=== PATIENT | male | born 1985 | race Two or more races ===

== ENCOUNTER 2019-04-07 12:50 | Emergency (ER) | payer SELFPAY ==
[~2019-04-07] VITALS: Ht 165.1 cm; Wt 97.0 kg
--- NOTE | 2019-04-07 13:48 | NUR ---
Went to room to see pt. Pt not in room at this time. Pt's friend/family member at bedside states, "he went to the bathroom."
[2019-04-07 14:06] VITALS: BP 133/85
--- NOTE | 2019-04-07 14:10 | NUR ---
Pt resting on gurney connected to NIBP, continous pulse ox, and child monitor. NADN. No needs expressed at this time. Pt states, "I went to work today and started having numbness, tingling, and cramping in my fingers and toes (bilaterally) and I started to feel paniced." Call light within reach. Pt denies cp, sob, n/v/d, trauma.
[2019-04-07 14:30] LABS: ANION GAP 13 mmol/L (5-15); CALCIUM 9.4 mg/dL (8.5-10.1); CHLORIDE 106 mmol/L (98-107); CREATININE 1.01 mg/dL (0.7-1.3)
--- NOTE | 2019-04-07 14:47 | NUR ---
Patient given discharge instructions and they have confirmed that they understand the instructions. Patient ambulatory with steady gait. Pt left with prescription, panic attack pamphlet, d/c paperwork, and all personal belongings.
== END 2019-04-07 14:51 | disposition home or self-care (01) ==
LOC: ED 13:53
DX: F41.1 Generalized anxiety disorder (principal); R06.4 Hyperventilation
CPT/HCPCS: 36415; 80048; 93005; 99284